=== PATIENT | female | born 1980 | race Caucasian/White ===

== ENCOUNTER 2020-11-25 09:36 | Emergency (ER) | payer OTHER ==
[~2020-11-25] VITALS: Ht 154.9 cm; Wt 66.8 kg
[~2020-11-25 09:36] MED LIST: NAPROXEN500 MG PO
== END 2020-11-25 11:55 | disposition home or self-care (01) ==
LOC: ED 09:36
DX: S61.217A Laceration without foreign body of left little finger without damage to nail, initial encounter (principal); W45.8XXA Other foreign body or object entering through skin, initial encounter; F17.200 Nicotine dependence, unspecified, uncomplicated; Z88.0 Allergy status to penicillin; Z88.8 Allergy status to other drugs, medicaments and biological substances
CPT/HCPCS: 12002; 99282-25